=== PATIENT | male | born 1985 | race Hispanic/Latino ===

== ENCOUNTER 2023-05-25 10:55 | Emergency (ER) | payer OTHER ==
[~2023-05-25] VITALS: Ht 160 cm; Wt 77.1 kg
[2023-05-25 10:56] VITALS: BP 177/108; PULSE 108; RESP 20
[2023-05-25] MEDS ORDERED: MUPI22OI2 TP (11:52)
[2023-05-25] MEDS ORDERED: SULF1TAB42 PO (11:52)
[2023-05-25] MEDS ORDERED: ACET-2079 PO (11:53)
[2023-05-25] MEDS ORDERED: IBUP-2070 PO (11:59)
[2023-05-25] MEDS ORDERED: SULFAMETHOX-TMP DS 800/160 TAB PO SCH (12:00)
[2023-05-25] MEDS ORDERED: HYDROCODONE/ACETAMINOPHEN 5/325 MG TAB PO ONE (12:00)
== END 2023-05-25 12:31 | disposition home or self-care (01) ==
LOC: EDH 10:55
DX: L02.239 Carbuncle of trunk, unspecified (principal); L02.229 Furuncle of trunk, unspecified; Z22.322 Carrier or suspected carrier of Methicillin resistant Staphylococcus aureus; Z86.14 Personal history of Methicillin resistant Staphylococcus aureus infection; Z79.899 Other long term (current) drug therapy; Z98.890 Other specified postprocedural states; Z88.0 Allergy status to penicillin
CPT/HCPCS: 10060